=== PATIENT | male | born 2000 | race Caucasian/White ===

== ENCOUNTER 2022-02-23 02:25 | Emergency (ER) | payer SELFPAY | END 2022-02-23 03:47 | disposition home or self-care (01) | LOC: CC.ED 02:25 | DX: M94.0 Chondrocostal junction syndrome [Tietze] (principal); F17.210 Nicotine dependence, cigarettes, uncomplicated | CPT/HCPCS: 36415; 80053; 84484; 85025; 93005; 93010; 99284 ==